=== PATIENT | male | born 1950 | race Caucasian/White ===

== ENCOUNTER 2019-02-05 10:16 | Day surgery (SDC) | payer MEDICARE, BC ==
[2019-02-05] MEDS ORDERED: LIDOCAINE 2% MDV (20MG/ML) 20ML VIAL IV ONE (10:17)
[2019-02-05] MEDS ORDERED: PROPOFOL 10 MG/ML VIAL IV ONE (10:17)
--- NOTE | 2019-02-05 14:20 | Operative Note ---
OPERATION: COLONOSCOPY. PREOPERATIVE DIAGNOSIS: Colon cancer screening. POSTOPERATIVE DIAGNOSIS: Redundant colon with fair prep and moderate sigmoid diverticulosis, otherwise normal. PROCEDURE: After informed consent was obtained from the patient, he was placed in the left lateral decubitus position in the endoscopy suite, sedated and monitored by the department of anesthesia. Digital rectal examination was unremarkable. A well-lubricated [id number] colonoscope was inserted into the rectum and advanced to the cecum. Preparation quality was fair at best. There were noted to be numerous areas that required significant lavage and evacuation of particulate matter and liquid. Small polyps may have been obscured by the preparation quality. The colon was quite redundant, and transabdominal pressure as well torsion of the scope as well as loop reduction were needing to be performed numerous times. The cecum, cecal bulb, ileocecal valve, ascending colon, transverse colon, descending colon, sigmoid colon, and rectum were free of inflammatory changes, mass lesions, or polyps. There were moderate sigmoid diverticular changes. The rectum was unremarkable in forward and J-turn views. The endoscope was straightened, the rectal ampulla deflated, and the endoscope was removed. RECOMMENDATIONS: I would suggest the patient follow a high-fiber diet. He should undergo repeat exam in 3 years based on the preparation quality. As always, thank you for allowing me to participate in the healthcare of your patients. MANDO
== END 2019-02-05 12:05 | disposition home or self-care (01) ==
LOC: HOP 10:16
PROVIDERS: ATTEND Internal Medicine Gastroenterology
DX: Z12.11 Encounter for screening for malignant neoplasm of colon (principal); K57.30 Diverticulosis of large intestine without perforation or abscess without bleeding; Q43.8 Other specified congenital malformations of intestine; Z91.19 Patient's noncompliance with other medical treatment and regimen; I10 Essential (primary) hypertension; E78.5 Hyperlipidemia, unspecified; K59.00 Constipation, unspecified; M81.0 Age-related osteoporosis without current pathological fracture
CPT/HCPCS: 00812; G0121